=== PATIENT | female | born 1940 | race Caucasian/White ===

== ENCOUNTER → 2018-03-11 | Outpatient (CLI) | payer MEDICARE, BC | LOC: M SMT 14:19 | DX: J44.9 Chronic obstructive pulmonary disease, unspecified (principal); J84.10 Pulmonary fibrosis, unspecified | CPT/HCPCS: 71046 ==

== ENCOUNTER 2023-09-17 17:19 | Inpatient (IN) | payer MEDICARE ==
[~2023-09-17] VITALS: Ht 157.5 cm; Wt 57.4 kg
[2023-09-17 19:00] VITALS: BP 140/68; TEMP 97.6; O2SAT 98
[2023-09-17] MEDS ORDERED: ACET650T61 PO (22:42)
[2023-09-17] MEDS ORDERED: VITA100093 PO (22:42)
[2023-09-17] MEDS ORDERED: ALBU8.5H INH (22:42)
[2023-09-17] MEDS ORDERED: ASPI-615 PO (22:42)
[2023-09-17] MEDS ORDERED: METO1TAB33 PO (22:42)
[2023-09-17] MEDS ORDERED: BACL10TA2 PO (22:42)
[2023-09-17] MEDS ORDERED: NITR4TASL SL (22:42)
[2023-09-17] MEDS ORDERED: ROSU10TA61 PO (22:42)
[2023-09-17] MEDS ORDERED: AMLO1TAB24 PO (22:42)
[2023-09-17] MEDS ORDERED: OCUVTAB4 PO (22:42)
[2023-09-17] MEDS ORDERED: ACTE20IN SC (22:42)
[2023-09-17] MEDS ORDERED: CYAN-1 PO (22:42)
[2023-09-17] MEDS ORDERED: PRED20TA PO (22:42)
[2023-09-17] MEDS ORDERED: ANOR1AER INH (22:42)
[2023-09-17] MEDS ORDERED: OMEG10002 PO (22:42)
[2023-09-17] MEDS ORDERED: ACET-1349 PO (22:42)
[2023-09-17] MEDS ORDERED: C 50TAB PO (22:42)
[2023-09-17] MEDS ORDERED: AMIT24CA7 PO (22:42)
[2023-09-17] MEDS ORDERED: PROL60SO SC (22:42)
[2023-09-17] MEDS ORDERED: HOME MED LIST COMPLETE! XX SCH (22:45)
[2023-09-17] MEDS: NS 1,000 ML IV SCH (23:05)
[2023-09-17 23:12] VITALS: BP 142/65; TEMP 98.7; O2SAT 93
[2023-09-17] MEDS ORDERED: ALBUTEROL 90 MCG/ACT 8GM HFA INHALER INH PRN (23:20)
[2023-09-17] MEDS ORDERED: NITROGLYCERIN 0.4MG SUBL TABLET SL PRN (23:20)
[2023-09-17] MEDS ORDERED: DENOSUMAB 60MG/1ML SYRINGE (PROLIA) SC SCH (23:20)
[2023-09-17 23:42] LABS: BASO % 0.2 % (0.0-1.0); EOS # 0.2 10^3/uL (0.0-0.5); EOS % 2.8 % (0.0-3.0); HEMATOCRIT 36.8 % (36.0-47.0); HEMOGLOBIN 12.2 g/dl (12.0-15.5); LYMPH # 2.6 10^3/uL (1.5-5.0); LYMPH % 30.6 % (24.0-44.0); MEAN CORPUSCULAR HEMOGLOBIN 30.6 pg (27.0-33.0); MEAN CORPUSCULAR HGB CONC 33.2 g/dl (32.0-36.5); MEAN CORPUSCULAR VOLUME 92.2 fl (80.0-96.0); MONO # 0.7 10^3/uL (0.0-0.8); MONO % 8.5 % (2.0-8.0); NEUTROPHILS # 4.8 10^3/uL (1.5-8.5); NEUTROPHILS % 56.8 % (36.0-66.0); PLATELET COUNT, AUTOMATED 277 10^3/uL (150-450); RED BLOOD COUNT 3.99 10^6/uL (4.00-5.40); WHITE BLOOD COUNT 8.5 10^3/uL (4.0-10.0)
[2023-09-17] MEDS: BACLOFEN 10 MG TAB PO SCH (23:53)
[2023-09-17] MEDS: ROSUVASTATIN 10 MG TAB (CRESTOR) PO SCH (23:54)
[2023-09-17] MEDS: amLODIPine 5 MG TAB PO SCH (23:54)
[2023-09-18] MEDS: KETOROLAC 30 MG/ML 1ML VIAL IV SCH
[2023-09-18] MEDS ORDERED: ACETAMINOPHEN *IV* 1,000 MG in IV 1 EA IV PRN (00:10)
[2023-09-18 00:11] LABS: ALKALINE PHOSPHATASE 63 U/L (46-116); ALT/SGPT 22 U/L (7.0-40); AST/SGOT 18 U/L (<34); BILIRUBIN,TOTAL 1.2 MG/DL (0.3-1.2); BLOOD UREA NITROGEN 19 MG/DL (9-23); CARBON DIOXIDE LEVEL 28 MMOL/L (20-31); CHLORIDE LEVEL 101 MMOL/L (98-107); CREATININE FOR GFR 0.63 MG/DL (0.55-1.30); GLOMERULAR FILTRATION RATE > 60.0 (>32); GLUCOSE, FASTING 114 MG/DL (74-106); POTASSIUM SERUM 3.8 MMOL/L (3.5-5.1); SODIUM LEVEL 138 MMOL/L (136-145); TOTAL PROTEIN 5.9 G/DL (5.7-8.2)
[2023-09-18] MEDS: cefTRIAXone SOD 2 GM in D5W MINI-BAG PLUS 50 ML IV SCH (03:16)
[2023-09-18 03:20] VITALS: BP 150/67; TEMP 97.3; O2SAT 94
[2023-09-18 05:44] LABS: HEMATOCRIT 36.5 % (36.0-47.0); HEMOGLOBIN 12.1 g/dl (12.0-15.5); MEAN CORPUSCULAR HEMOGLOBIN 30.7 pg (27.0-33.0); MEAN CORPUSCULAR HGB CONC 33.2 g/dl (32.0-36.5); MEAN CORPUSCULAR VOLUME 92.6 fl (80.0-96.0); PLATELET COUNT, AUTOMATED 242 10^3/uL (150-450); RED BLOOD COUNT 3.94 10^6/uL (4.00-5.40); WHITE BLOOD COUNT 6.2 10^3/uL (4.0-10.0)
[2023-09-18 06:14] LABS: ALBUMIN 2.8 G/DL (3.2-5.2); ALKALINE PHOSPHATASE 59 U/L (46-116); ALT/SGPT 20 U/L (7.0-40); AST/SGOT 17 U/L (<34); BLOOD UREA NITROGEN 17 MG/DL (9-23); CALCIUM LEVEL 8.4 MG/DL (8.3-10.6); CARBON DIOXIDE LEVEL 30 MMOL/L (20-31); CHLORIDE LEVEL 101 MMOL/L (98-107); CREATININE FOR GFR 0.66 MG/DL (0.55-1.30); GLOMERULAR FILTRATION RATE > 60.0 (>32); GLUCOSE, FASTING 112 MG/DL (74-106); POTASSIUM SERUM 3.5 MMOL/L (3.5-5.1); SODIUM LEVEL 140 MMOL/L (136-145); TOTAL PROTEIN 5.6 G/DL (5.7-8.2)
[2023-09-18 08:47] LABS: INR 1.04; PARTIAL THROMBOPLASTIN TIME 27.7 SECONDS (24.8-34.2); PROTHROMBIN TIME 13.3 SECONDS (12.5-14.5)
[2023-09-18] MEDS: OMEGA-3 1000MG CAPSULE PO SCH (09:00)
[2023-09-18] MEDS: VITAMIN D 1,000 INTERNATIONAL UNITS TABLET PO SCH (09:00)
[2023-09-18] MEDS: ASCORBIC ACID 500 MG TAB PO SCH (09:00)
[2023-09-18] MEDS: ACETAMINOPHEN 650MG ER TAB (TYLENOL ARTHRITIS) PO SCH (09:00)
[2023-09-18] MEDS: METOPROLOL SUCC (TopROL XL) 100MG *XL* TAB PO SCH (09:00)
[2023-09-18 09:01] VITALS: BP 142/65; TEMP 97.7; O2SAT 96
[2023-09-18] MEDS: ENOXAPARIN 40MG/0.4ML SYRINGE (J1650 PER 10MG) SC SCH (09:02)
[2023-09-18] MEDS ORDERED: PILL CUTTER 1 EACH XX ONE (09:21)
[2023-09-18] MEDS: methylPREDNISolone 40MG 1ML VIAL IV SCH (10:10)
[2023-09-18 12:16] VITALS: BP 156/72; TEMP 97.8; O2SAT 96
[2023-09-18] MEDS: BISACODYL 10MG SUPP PR ONE (12:25)
[2023-09-18] MEDS ORDERED: **hydrALAZINE** 10 MG TAB PO PRN (13:05)
[2023-09-18 16:27] VITALS: BP 139/62; TEMP 98.5; O2SAT 92
[2023-09-18 19:56] VITALS: BP 133/61; TEMP 98.2; O2SAT 93
[2023-09-19 03:19] VITALS: BP 154/70; TEMP 98.9; O2SAT 94
[2023-09-19 06:15] LABS: HEMATOCRIT 35.1 % (36.0-47.0); HEMOGLOBIN 11.5 g/dl (12.0-15.5); MEAN CORPUSCULAR HEMOGLOBIN 30.8 pg (27.0-33.0); MEAN CORPUSCULAR HGB CONC 32.8 g/dl (32.0-36.5); MEAN CORPUSCULAR VOLUME 94.1 fl (80.0-96.0); PLATELET COUNT, AUTOMATED 239 10^3/uL (150-450); RED BLOOD COUNT 3.73 10^6/uL (4.00-5.40); WHITE BLOOD COUNT 8.6 10^3/uL (4.0-10.0)
[2023-09-19 06:49] LABS: ALBUMIN 1.7 G/DL (3.2-5.2); ALKALINE PHOSPHATASE 52 U/L (46-116); ALT/SGPT 16 U/L (7.0-40); AST/SGOT 14 U/L (<34); BILIRUBIN,TOTAL 0.8 MG/DL (0.3-1.2); BLOOD UREA NITROGEN 12 MG/DL (9-23); CALCIUM LEVEL 7.5 MG/DL (8.3-10.6); CARBON DIOXIDE LEVEL 27 MMOL/L (20-31); CHLORIDE LEVEL 106 MMOL/L (98-107); CREATININE FOR GFR 0.52 MG/DL (0.55-1.30); GLOMERULAR FILTRATION RATE > 60.0 (>32); GLUCOSE, FASTING 113 MG/DL (74-106); POTASSIUM SERUM 3.7 MMOL/L (3.5-5.1); SODIUM LEVEL 143 MMOL/L (136-145); TOTAL PROTEIN 5.4 G/DL (5.7-8.2)
[2023-09-19 08:14] VITALS: BP_SYST 151; BP_DIAS 65; BP_DIAS 66; TEMP 98.2; O2SAT 97
[2023-09-19 08:35] VITALS: BP 151/66
[2023-09-19] MEDS: DOCUSATE SOD LIQ 100MG/10ML UDC GT SCH (10:35)
[2023-09-19] MEDS: BISACODYL 10MG SUPP PR ONE (10:35)
[2023-09-19 12:18] VITALS: BP 131/53; TEMP 98.3; O2SAT 96
[2023-09-19] MEDS ORDERED: CEFD1CAP9 PO (15:34)
[2023-09-19] MEDS ORDERED: COLA100C5 PO (15:34)
[2023-09-19] MEDS ORDERED: SENN8.6T58 PO (15:34)
[2023-09-22] MEDS ORDERED: methylPREDNISolone 40MG 1ML VIAL IV SCH (09:00)
== END 2023-09-19 17:19 | disposition home or self-care (01) | DRG 389 ==
LOC: EEVIPCON 19:18 → M PCU 19:18
PROVIDERS: ADMIT Internal Medicine; ATTEND Internal Medicine
DX: K56.600 Partial intestinal obstruction, unspecified as to cause (principal); N39.0 Urinary tract infection, site not specified; I35.1 Nonrheumatic aortic (valve) insufficiency; I10 Essential (primary) hypertension; K59.00 Constipation, unspecified; K21.9 Gastro-esophageal reflux disease without esophagitis; I25.10 Atherosclerotic heart disease of native coronary artery without angina pectoris; M35.3 Polymyalgia rheumatica; I71.40 Abdominal aortic aneurysm, without rupture, unspecified; Z95.1 Presence of aortocoronary bypass graft; Z88.5 Allergy status to narcotic agent; Z88.8 Allergy status to other drugs, medicaments and biological substances; Z79.899 Other long term (current) drug therapy; Z91.012 Allergy to eggs; Z79.82 Long term (current) use of aspirin; K22.70 Barrett's esophagus without dysplasia; E78.5 Hyperlipidemia, unspecified; G35 Multiple sclerosis